=== PATIENT | male | born 1995 | race Two or more races ===

== ENCOUNTER 2017-04-10 08:30 | Emergency (ER) | payer MEDICAID ==
[2017-04-10 08:42] VITALS: RESP 18; TEMP 97.7
--- NOTE | 2017-04-10 09:02 | EDPHY ---
H & P Stated Complaint: Has been stressed out x 2 wks; difficulty sleeping,anxious, No SI/HI Time Seen by Provider: 04/10/17 09:01 HPI/ROS: HPI: This is a 21-year-old male who presents with Chief Complaint: Has been stressed out x 2 wks; difficulty sleeping,anxious, No SI/HI Location: Body Quality: Stress Duration: 2 weeks Signs and Symptoms: + numbness and bilateral arm, + dyspnea, no cough, + insomnia, + snoring, + anxiety, no chest pain, + indigestion, no abdominal pain , no nausea, no vomiting, no fever Timing: Acute on chronic Severity: Moderate Context: Patient works as a history of essential hypertension at he was seen at [facility] for and placed on a blood pressure medication that he does not know the name of but he took himself off approximately 1 year ago. He presents to the emergency room today after his girlfriend urged him to come to be evaluated. Patient has been experiencing increased stress, he is afraid of height, experiencing insomnia, does not feel rested in the morning after he sleeps. He reports while he is having anxiety attacks feels stressed that but with of his arms go numb and he agrees fast. He is a nonsmoker and has no prior history of lung disease. After further questioning patient reports that he was told several years ago that he has sleep apnea but he never followed up for sleep study test. He was in the process of obtaining Medicaid but never followed through. + sedentary lifestyle Modifying Factors: None Comment: ROS: see HPI Constitutional: No fever, no chills, no weight loss Eyes: No blurred vision Respiratory: No shortness of breath, no cough Cardiovascular: No chest pain Gastrointestinal: No nausea, no vomiting, no diarrhea Genitourinary: No dysuria Extremities: No myalgias Neurologic: No weakness, no numbness Skin: No rashes Hematologic: No bruising, no bleeding MEDICAL/SURGICAL/SOCIAL HISTORY: Medical history: obesity, HTN (untreated). Does not take any regular medications. Surgical history: Denies Social history: Currently in a relationship. CONSTITUTIONAL: Morbidly police well-appearing, anxious male, awake and alert, no obvious distress HEENT: Atraumatic and normocephalic, PERRL, EOMI. Tympanic membranes clear. Oropharynx clear, no exudate and moist pink mucosa. Airway patent. No lymphadenopathy. No meningismus. Cardiovascular: Normal S1/S2, regular rate, regular rhythm, without murmur rub or gallop. PULMONARY/CHEST: Symmetrical and nontender. Clear to auscultation bilaterally. Good air movement. No accessory muscle usage. ABDOMEN: Soft, nondistended, nontender, no rebound, no guarding, no peritoneal signs, no masses or organomegaly. No CVAT. EXTREMITIES: 2/2 pulses, strength 5/5, no deformities, no clubbing, no cyanosis or edema. NEUROLOGICAL: no focal neuro deficits. GCS 15. SKIN: Warm and dry, no erythema. no rash. Good capillary refill. Source: Patient Exam Limitations: No limitations - Personal History Current Tetanus Diphtheria and Acellular Pertussis (TDAP): Yes - Medical/Surgical History Other PMH: obesity. HTN (untreated) - Social History Smoking Status: Former smoker Constitutional: Initial Vital Signs Temperature (C) 36.5 C 04/10/17 08:37 Heart Rate 96 04/10/17 08:37 Respiratory Rate 18 04/10/17 08:37 Blood Pressure 161/101 H 04/10/17 08:37 O2 Sat (%) 98 04/10/17 08:37 O2 Delivery Mode Room Air Allergies/Adverse Reactions: No Known Allergies Allergy (Verified 04/10/17 08:36) Home Medications: Medication Instructions Recorded amLODIPine BESYLATE [Norvasc 5 mg 5 mg PO HS #10 tab 04/10/17 (*)] hydrOXYzine HCL [Vistaril 25MG] 25 mg PO Q8 PRN #10 tab 04/10/17 Medical Decision Making - Diagnostics EKG Interpretation: 12 lead EKG: Indication: Dyspnea Rhythm: Normal sinus rhythm, rate 80 beats per minute [place]: Normal Intervals: Normal QRS: Normal ST segments: Normal INTERPRETATION: No acute ischemic changes The 12 lead EKG was interpreted by myself and with attending. Imaging Results: Imaging Impressions Chest X-Ray 04/10/17 09:46 Impression: No acute findings in the chest. ED Course/Re-evaluation: EKG, chest x-ray, labs, oral medication ordered Given p.o. Ativan with moderate relief Chest x-ray my read shows no signs of effusion, opacity, pneumothorax, widened cardio mediastinum. Patient's blood pressure is slightly elevated above baseline upon arrival; it is unsure of medication name; referred [facility] to establish blood pressure medication regimen. Labs reviewed and show no gross abnormality including no ACS/CHF. This patient was seen under the supervision of my secondary supervising physician. I evaluated care for this patient independently. Differential Diagnosis: Differential diagnosis includes but is not limited to anxiety, hyperventilation syndrome, obstructive sleep apnea, electrolyte imbalance. - Data Points Laboratory Results: Laboratory Results 04/10/17 10:20 04/10/17 10:00 04/10/17 04/10/17 10:20 10:00 WBC 11.70 10^3/uL H 10^3/uL (3.80-9.50) RBC 5.71 10^6/uL 10^6/uL (4.40-6.38) Hgb 13.8 g/dL g/dL (13.7-17.5) Hct 42.5 % % (40.0-51.0) MCV 74.4 fL L fL (81.5-99.8) MCH 24.2 pg L pg (27.9-34.1) MCHC 32.5 g/dL g/dL (32.4-36.7) RDW 15.5 % H % (11.5-15.2) Plt Count 391 10^3/uL 10^3/uL (150-400) MPV 9.3 fL fL (8.7-11.7) Neut % (Auto) 70.3 % % (39.3-74.2) Lymph % (Auto) 23.3 % % (15.0-45.0) [place] % (Auto) 4.9 % % (4.5-13.0) Eos % (Auto) 0.9 % % (0.6-7.6) Baso % (Auto) 0.3 % % (0.3-1.7) Nucleat RBC Rel Count 0.0 % % (0.0-0.2) Absolute Neuts (auto) 8.23 10^3/uL H 10^3/uL (1.70-6.50) Absolute Lymphs (auto) 2.73 10^3/uL 10^3/uL (1.00-3.00) Absolute Monos (auto) 0.57 10^3/uL 10^3/uL (0.30-0.80) Absolute Eos (auto) 0.10 10^3/uL 10^3/uL (0.03-0.40) Absolute Basos (auto) 0.04 10^3/uL 10^3/uL (0.02-0.10) Absolute Nucleated RBC 0.00 10^3/uL 10^3/uL (0-0.01) Immature Gran % 0.3 % % (0.0-1.1) Immature Gran # 0.03 10^3/uL 10^3/uL (0.00-0.10) Sodium 145 mEq/L mEq/L (135-145) Potassium 4.6 mEq/L mEq/L (3.5-5.2) Chloride 109 mEq/L mEq/L (97-110) Carbon Dioxide 17 mEq/l L mEq/l (22-31) Anion Gap 19 mEq/L H mEq/L (8-16) BUN 5 mg/dL L mg/dL (7-23) Creatinine 0.6 mg/dL L mg/dL (0.7-1.3) Estimated GFR > 60 Glucose 96 mg/dL mg/dL (70-100) Calcium 9.5 mg/dL mg/dL (8.5-10.4) Troponin I 0.013 ng/mL ng/mL (0.000-0.034) NT-Pro-B Natriuret Pep 44 pg/mL pg/mL (0-125) Specimen Hemolysis 142 Medications Given: Discontinued Medications Lorazepam (Ativan) 1 mg PO EDNOW ONE Stop: 04/10/17 09:48 Last Admin: 04/10/17 10:10 Dose: 1 mg Departure - Departure Disposition: Home, Routine, Self-Care Clinical Impression: Obstructive sleep apnea, Essential hypertension Anxiety disorder Qualifiers: Anxiety disorder type: generalized anxiety disorder Qualified Code(s): F41.1 - Generalized anxiety disorder Condition: Good Instructions: Sleep Apnea (DC), Heart Healthy Diet (ED), Hypertension (ED) Additional Instructions: Today there are no signs of injury to your heart or lungs. Please eat a low-sodium heart healthy diet. Re-establish care at [facility] and start taking your blood pressure medications regularly. Follow-up with a sleep study outpatient to diagnose obstructive sleep apnea. Referrals: [facility],. [Clinic] - As per Instructions Prescriptions: amLODIPine BESYLATE [Norvasc 5 mg (*)] 5 mg PO HS #10 tab hydrOXYzine HCL [Vistaril 25MG] 25 mg PO Q8 PRN #10 tab PRN Reason: Anxiety
[2017-04-10] MEDS ORDERED: LORazepam 1 MG TAB PO ONE (09:47)
--- NOTE | 2017-04-10 09:54 | CPEKG ---
Heart Rate: 89 RR Interval: 674 P-R Interval: 156 QRSD Interval: 102 QT Interval: 364 QTC Interval: 443 P [place]: 20 QRS [place]: 61 T Wave [place]: 7 EKG Severity - NORMAL ECG - EKG Impression: SINUS RHYTHM Electronically Signed By: Krishna Almanzar 10-Apr-2017 13:35:20
[2017-04-10 10:15] VITALS: BP 166/99; PULSE 93; O2SAT 95
[2017-04-10 10:26] LABS: PLATELET COUNT 391 10^3/uL (150-400)
== END 2017-04-10 11:09 | disposition home or self-care (01) ==
DX: F41.1 Generalized anxiety disorder (principal); G47.33 Obstructive sleep apnea (adult) (pediatric); I10 Essential (primary) hypertension; Z87.891 Personal history of nicotine dependence

== ENCOUNTER 2017-06-26 09:01 | Emergency (ER) | payer MEDICAID ==
[2017-06-26] MEDS ORDERED: LIDOCAINE 2% VISCOUS 15 ML UDCUP PO ONE (09:28)
[2017-06-26] MEDS ORDERED: MAG HYDROX/AL HYDROX/SIMETH 30 ML UDCUP PO ONE (09:28)
[2017-06-26] MEDS ORDERED: HYOSCYAMINE SULFATE 0.125 MG TAB PO ONE (09:28)
--- NOTE | 2017-06-26 09:28 | EDPHY ---
General Time Seen by Provider: 06/26/17 09:14 Narrative: CHIEF COMPLAINT: Chest pain, shortness of breath HISTORY OF PRESENT ILLNESS: Patient presents with mother and sibling. He complains of retrosternal chest pain and some shortness of breath. Symptoms have been present for 3 weeks. The gradual onset. The symptoms wax and wane. Symptoms resolved at times. At times they are worse with exertion and activity. Other times it is worse with certain foods. No cough. No sore throat. No abdominal pain. No urinary complaints. He does have some feeling of early satiety when eating at times. No fever. No chills. No recent travel or surgery. No lower extremity erythema edema or pain. No history of venous thrombolic event. He does take 2 blood pressure medications. He has not yet contacted his primary care physician. He has a sleep study scheduled for tomorrow. No previous workup for this. No other associated complaints or modifying factors. REVIEW OF SYSTEMS: Ten systems reviewed and are negative unless otherwise noted in the HPI PCP: [facility] SPECIALISTS: None PAST MEDICAL HISTORY: Hypertension. Pending sleep study PAST SURGICAL HISTORY: No surgical history SOCIAL HISTORY: Nonsmoker. Lives here locally independently. 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 Morbidly obese. Head: normocephalic, atraumatic Eyes: Pupils equal and round, no conjunctival pallor or injection ENT, Mouth: Mucous membranes moist Neck: Normal inspection, supple, non-tender Respiratory: Lungs are clear to auscultation. No wheezing, rhonchi or crackles Cardiovascular: Regular rate and rhythm Gastrointestinal: Obese Abdomen is soft and nontender. Difficult to obtain full examination due to habitus Back: non-tender, no bony abnormalities Neurological: A&O, nonfocal, normal gait Skin: Warm and dry, no rash Extremities: Nontender, no pedal edema Psychiatric: Mood and affect normal DIFFERENTIAL DIAGNOSES: Including but not limited to ACS, GERD, PE, reflux, esophagitis, gastritis, influenza, pleurisy, pericarditis, congestive heart failure MDM: 9:20 a.m. Retrosternal chest pain and shortness of breath over the past 3 weeks. Difficult to fully described the pain for the patient. at times is worse with exertion. At times worse with food. Patient does have a very large body habitus on 2 blood pressure medications with sleep study pending. Given his comorbidities, I have ordered cardiac laboratory studies, chest x-ray. EKG is currently being obtained. His vital signs are within normal limits. He is in no acute distress. He is not appear ill 10:13 a.m. CBC reveals a very mild leukocytosis. Chemistry is completely within normal limits. Troponin is negative. D-dimer is negative. Chest x-ray as read by radiologist reveals no acute process with a normal heart size. 10:20 a.m. Patient re-evaluated. He is resting comfortably. I discussed the negative findings, chest x-ray and EKG. We discussed the possibility of etiologies. At this point I do feel he is stable for discharge home with outpatient follow-up with primary care physician. He has a sleep study scheduled for tomorrow. We discussed ED precautions and he is comfortable this plan. Discharged home stable condition. EKG interpretation: Dr. Almanzar SUPERVISION: Patient was independently examined, but I discussed the case with my secondary supervising physician Dr. Almanzar - Diagnostics Imaging Results: Imaging Impressions Chest X-Ray 06/26/17 09:29 Impression: Clear lungs. No acute process. - History Smoking Status: Former smoker - Objective Vital Signs: Initial Vital Signs Temperature (C) 98.2 F 06/26/17 09:06 Heart Rate 78 06/26/17 09:06 Respiratory Rate 18 06/26/17 09:06 Blood Pressure 155/86 H 06/26/17 09:06 O2 Sat (%) 96 06/26/17 09:06 O2 Delivery Mode Room Air Allergies/Adverse Reactions: No Known Allergies Allergy (Verified 06/26/17 09:05) Home Medications: Medication Instructions Recorded amLODIPine BESYLATE [Norvasc 5 mg 5 mg PO HS #10 tab 04/10/17 (*)] Losartan Potassium 06/26/17 Laboratory Results: Laboratory Results 06/26/17 09:40 06/26/17 09:40 06/26/17 06/26/17 06/26/17 09:40 09:40 09:40 WBC 10.64 10^3/uL H 10^3/uL (3.80-9.50) RBC 5.63 10^6/uL 10^6/uL (4.40-6.38) Hgb 13.4 g/dL L g/dL (13.7-17.5) Hct 42.0 % % (40.0-51.0) MCV 74.6 fL L fL (81.5-99.8) MCH 23.8 pg L pg (27.9-34.1) MCHC 31.9 g/dL L g/dL (32.4-36.7) RDW 15.6 % H % (11.5-15.2) Plt Count 367 10^3/uL 10^3/uL (150-400) MPV 9.6 fL fL (8.7-11.7) Neut % (Auto) 67.8 % % (39.3-74.2) Lymph % (Auto) 25.7 % % (15.0-45.0) [place] % (Auto) 4.9 % % (4.5-13.0) Eos % (Auto) 1.1 % % (0.6-7.6) Baso % (Auto) 0.3 % % (0.3-1.7) Nucleat RBC Rel Count 0.0 % % (0.0-0.2) Absolute Neuts (auto) 7.22 10^3/uL H 10^3/uL (1.70-6.50) Absolute Lymphs (auto) 2.73 10^3/uL 10^3/uL (1.00-3.00) Absolute Monos (auto) 0.52 10^3/uL 10^3/uL (0.30-0.80) Absolute Eos (auto) 0.12 10^3/uL 10^3/uL (0.03-0.40) Absolute Basos (auto) 0.03 10^3/uL 10^3/uL (0.02-0.10) Absolute Nucleated RBC 0.00 10^3/uL 10^3/uL (0-0.01) Immature Gran % 0.2 % % (0.0-1.1) Immature Gran # 0.02 10^3/uL 10^3/uL (0.00-0.10) D-Dimer < 0.27 ug/mLFEU ug/mLFEU (0.00-0.50) Sodium 142 mEq/L mEq/L (135-145) Potassium 3.8 mEq/L mEq/L (3.5-5.2) Chloride 104 mEq/L mEq/L (97-110) Carbon Dioxide 24 mEq/l mEq/l (22-31) Anion Gap 14 mEq/L mEq/L (8-16) BUN 7 mg/dL mg/dL (7-23) Creatinine 0.7 mg/dL mg/dL (0.7-1.3) Estimated GFR > 60 Glucose 84 mg/dL mg/dL (70-100) Calcium 9.1 mg/dL mg/dL (8.5-10.4) Troponin I < 0.012 ng/mL ng/mL (0.000-0.034) Lipase 51 IU/L IU/L (23-300) Medications Given: Discontinued Medications Al Hydroxide/Mg Hydroxide (Maalox Susp) 30 ml PO ONCE ONE Stop: 06/26/17 09:29 Last Admin: 06/26/17 09:47 Dose: 30 ml Hyoscyamine Sulfate (Levsin, Hyomax-Sl) 0.25 mg PO ONCE ONE Stop: 06/26/17 09:29 Last Admin: 06/26/17 09:47 Dose: 0.25 mg Lidocaine (Lidocaine 2% Viscous) 15 ml PO ONCE ONE Stop: 06/26/17 09:29 Last Admin: 06/26/17 09:47 Dose: 15 ml Departure - Departure Disposition: Home, Routine, Self-Care Clinical Impression: Acute chest pain Condition: Good Instructions: Chest Pain (ED), Gastroesophageal Reflux Disease (ED), Shortness of Breath (ED) Additional Instructions: 1. Discontinue ranitidine. Switch to Pepcid 20 mg twice daily for the next 7- 14 days 2. If this does not improve your symptoms, you may try Prilosec over-the- counter once daily 3. Follow up with primary care physician for further care 4. ED precautions as discussed Referrals: Vicky Jarrell RPH [Primary Care Provider] - As per Instructions Kenton Carrasco MD [Medical Doctor] - As per Instructions
--- NOTE | 2017-06-26 09:33 | CPEKG ---
Heart Rate: 75 RR Interval: 800 P-R Interval: 160 QRSD Interval: 104 QT Interval: 380 QTC Interval: 425 P [place]: 23 QRS [place]: 48 T Wave [place]: 14 EKG Severity - NORMAL ECG - EKG Impression: SINUS RHYTHM Electronically Signed By: Krishna Almanzar 26-Jun-2017 14:32:00
[2017-06-26 09:48] LABS: PLATELET COUNT 367 10^3/uL (150-400)
[2017-06-26 10:50] VITALS: BP 150/78
== END 2017-06-26 10:49 | disposition home or self-care (01) ==
DX: R07.9 Chest pain, unspecified (principal); I10 Essential (primary) hypertension; Z87.891 Personal history of nicotine dependence

== ENCOUNTER 2017-07-05 20:54 | Emergency (ER) | payer MEDICAID ==
--- NOTE | 2017-07-05 21:07 | EDPHY ---
H & P Stated Complaint: Swallowing, breathing restricted, feels like something stuck in throat. Time Seen by Provider: 07/05/17 21:06 HPI/ROS: HPI: This is a 21-year-old male who presents with Chief Complaint: Swallowing, breathing restricted, feels like something stuck in throat. Location: Esophagus Quality: Difficulty swallowing Duration: Several weeks Signs and Symptoms: no fever, no nausea, no vomiting, no hematemesis, no blood in stool, no abdominal bloating, no diarrhea, no back pain, no urinary symptoms , no testicular/groin pain, no indigestion, no chest pain, no shortness of breath Timing: Worsening Severity: Moderate Context: Patient has a history of obesity, hypertension, sleep apnea, GERD presents with complaints of difficulty swallowing feeling like he has thick phlegm in the middle of his esophagus for the last several weeks. He reports that he has no difficulty eating or drinking though. Denies any drooling/ shortness of breath/chest pain. Patient was seen in this emergency room on complaining of retro sternal cardiac chest pain and diagnosed with GERD. He was started on Pepcid 20 mg twice daily which patient reports compliance. He was given a GI cocktail during the ER visit and he adamantly declines 1 this visit as he feels like his swelling was made worse by the GI cocktail. Denies any abdominal pain/fever/nausea/vomiting/diarrhea. Modifying Factors: Pepcid Comment: ROS: see HPI Constitutional: No fever, no chills, no weight loss Eyes: No blurred vision Respiratory: No shortness of breath, no cough Cardiovascular: No chest pain, no palpitations Gastrointestinal: No nausea, no vomiting, no diarrhea, no hematemesis, no blood in stool Genitourinary: No dysuria, no blood in urine Extremities: No myalgias, no edema Neurologic: No weakness, no numbness Skin: No rashes, no petechiae Hematologic: No bruising, no bleeding MEDICAL/SURGICAL/SOCIAL HISTORY: Medical history: Obesity, hypertension Surgical history: Denies Social history: Family history noncontributory. CONSTITUTIONAL: Extremely well-appearing morbidly obese young adult male, severe anxiety, awake and alert HEENT: Atraumatic and normocephalic, PERRL, EOMI. Nares patent; no rhinorrhea; no nasal mucosal edema. Tympanic membranes clear. Oropharynx clear, no exudate and moist pink mucosa. Airway patent. No lymphadenopathy. No meningismus. Cardiovascular: Normal S1/S2, regular rate, regular rhythm, without murmur rub or gallop. PULMONARY/CHEST: Symmetrical and nontender. No upper airway sound transmission. Clear to auscultation bilaterally. Good air movement. No accessory muscle usage. ABDOMEN: Soft, nondistended, nontender, no rebound, no guarding, no peritoneal signs, no masses or organomegaly. No CVAT. EXTREMITIES: 2/2 pulses, strength 5/5, no deformities, no clubbing, no cyanosis or edema. NEUROLOGICAL: no focal neuro deficits. GCS 15. SKIN: Warm and dry, no erythema. no rash. Good capillary refill. Source: Patient Exam Limitations: No limitations - Personal History Current Tetanus/Diphtheria Vaccine: Unsure Current Tetanus Diphtheria and Acellular Pertussis (TDAP): Unsure - Medical/Surgical History Hx Asthma: No Hx Chronic Respiratory Disease: No Hx Diabetes: No Hx Cardiac Disease: No Hx Renal Disease: No Hx Cirrhosis: No Hx Alcoholism: No Hx HIV/AIDS: No Hx Splenectomy or Spleen Trauma: No Other PMH: obesity. HTN (untreated) - Social History Smoking Status: Former smoker Constitutional: Initial Vital Signs Temperature (C) 36.5 C 07/05/17 21:00 Heart Rate 85 07/05/17 21:00 Respiratory Rate 19 07/05/17 21:00 Blood Pressure 149/90 H 07/05/17 21:00 O2 Sat (%) 97 07/05/17 21:00 O2 Delivery Mode Room Air Allergies/Adverse Reactions: No Known Allergies Allergy (Verified 06/26/17 09:05) Home Medications: Medication Instructions Recorded amLODIPine BESYLATE [Norvasc 5 mg 5 mg PO HS #10 tab 04/10/17 (*)] Losartan Potassium 06/26/17 Pepcid 07/05/17 Medical Decision Making - Diagnostics Imaging Results: Imaging Impressions Soft Tissue Neck X-Ray 07/05/17 21:14 Impression: 1. Mild thickening of the palatine tonsils with normal contour of the adenoid tonsils. ED Course/Re-evaluation: Vital signs reviewed upon arrival in stable. No signs of airway compromise/respiratory distress. Doubt infectious/obstructive process. Patient is still able to eat and drink without difficulty. Given 1 L normal saline, IV Ativan, IV Reglan, IV Benadryl with moderate relief of symptoms-suspect anxiety component Soft tissue neck x-ray my read via PAC shows normal epiglottis, no air, mild thickening of the palatine tonsils No signs of tonsillar abscess/strep pharyngitis. Passed p. O. Trial prior to discharge. Advised increased fluids, ENT follow-up, continue to take Pepcid This patient was seen under the supervision of my secondary supervising physician. I evaluated care for this patient independently. Discussed this patient with Dr. Harris who did not see the patient. Differential Diagnosis: Differential diagnosis includes but is not limited to GERD, esophagitis, gastritis, esophageal spasm, dysphagia, anxiety. - Data Points Medications Given: Discontinued Medications Diphenhydramine HCl (Benadryl Injection) 25 mg IVP EDNOW ONE Stop: 07/05/17 21:15 Last Admin: 07/05/17 21:20 Dose: 25 mg Sodium Chloride (Ns) 1,000 mls @ 0 mls/hr IV EDNOW ONE; Wide Open PRN Reason: Protocol Stop: 07/05/17 21:15 Last Admin: 07/05/17 21:23 Dose: 1,000 mls Lorazepam (Ativan Injection) 1 mg IVP EDNOW ONE Stop: 07/05/17 21:15 Last Admin: 07/05/17 21:22 Dose: 1 mg Metoclopramide HCl (Reglan Injection) 10 mg IVP EDNOW ONE Stop: 07/05/17 21:15 Last Admin: 07/05/17 21:21 Dose: 10 mg Departure - Departure Disposition: Home, Routine, Self-Care Clinical Impression: Phlegm in throat GERD (gastroesophageal reflux disease) Qualifiers: Esophagitis presence: esophagitis presence not specified Qualified Code(s): K21.9 - Gastro-esophageal reflux disease without esophagitis Condition: Good Instructions: Low Fat Diet (ED), Gastroesophageal Reflux Disease (ED) Additional Instructions: X-ray today does not show any obstruction within your esophagus. Consume a minimum of 8-10 glasses of water daily. Eat a soft bland diet for the next 48 hours and then slowly advance as tolerated. Continue to take Pepcid 20 mg twice daily. Avoid eating large meals. Eat several small meals throughout the day. Follow-up with ear nose and throat or gastroenterology in 7-10 days if symptoms persist. Referrals: Estuardo Mullins MD [Medical Doctor] - As per Instructions Krishna Menjivar MD [Medical Doctor] - As per Instructions
[2017-07-05] MEDS ORDERED: NS 1,000 ML IV ONE (21:14)
[2017-07-05] MEDS ORDERED: METOCLOPRAMIDE 10 MG/2 ML VIAL IVP ONE (21:14)
[2017-07-05] MEDS ORDERED: LORazepam 2 MG/ML INJ IVP ONE (21:14)
[2017-07-05 22:08] VITALS: BP 129/88
== END 2017-07-05 22:19 | disposition home or self-care (01) ==
DX: K21.9 Gastro-esophageal reflux disease without esophagitis (principal); R09.3 Abnormal sputum; E86.9 Volume depletion, unspecified; I10 Essential (primary) hypertension; Z87.891 Personal history of nicotine dependence
CPT/HCPCS: 96374; J1200; J2060; J2765